=== PATIENT | male | born 1955 | race Caucasian/White ===

== ENCOUNTER 2017-07-27 07:09 | Outpatient (CLI) | payer OTHER ==
[~2017-07-27 07:09] MED LIST: CELEXA20 MG; HYZAAR 100-251 UDTAB; INTESTINEX1 CA1 PO; KLONOPIN0.5 MG/TAB; NEURONTIN800 MG; PROTONIX40 MG; PROTONIX40 MG PO; SKELAXIN800 MG; TOPROL XL25 MG
== END 2017-07-27 07:20 | disposition home or self-care (01) ==
LOC: SONOGRAMA 07:09 → MAMO-SONO 08:15
DX: K76.0 Fatty (change of) liver, not elsewhere classified (principal)

== ENCOUNTER 2017-09-28 07:33 | Outpatient (CLI) | payer OTHER | END 2017-09-28 15:33 | disposition home or self-care (01) | LOC: MRI 07:33 | DX: M17.12 Unilateral primary osteoarthritis, left knee (principal) | CPT/HCPCS: 73721 ==

== ENCOUNTER 2018-02-24 09:44 | Outpatient (CLI) | payer OTHER | END 2018-02-24 09:48 | disposition home or self-care (01) | LOC: LAB 09:44 | DX: I10 Essential (primary) hypertension (principal); E11.9 Type 2 diabetes mellitus without complications; E03.8 Other specified hypothyroidism; E78.2 Mixed hyperlipidemia; M81.0 Age-related osteoporosis without current pathological fracture; N40.0 Benign prostatic hyperplasia without lower urinary tract symptoms; K72.00 Acute and subacute hepatic failure without coma ==

== ENCOUNTER 2018-06-29 09:18 | Outpatient (CLI) | payer OTHER | END 2018-06-29 09:31 | disposition home or self-care (01) | LOC: TOM 09:18 | DX: K44.9 Diaphragmatic hernia without obstruction or gangrene (principal); J44.9 Chronic obstructive pulmonary disease, unspecified; J43.8 Other emphysema; R07.89 Other chest pain ==

== ENCOUNTER 2018-10-25 08:26 | Outpatient (CLI) | payer OTHER | END 2018-10-25 11:29 | disposition home or self-care (01) | LOC: LAB 08:26 | DX: E78.2 Mixed hyperlipidemia (principal); I10 Essential (primary) hypertension; E11.9 Type 2 diabetes mellitus without complications; E03.8 Other specified hypothyroidism ==

== ENCOUNTER 2018-10-26 08:03 | Outpatient (CLI) | payer OTHER | END 2018-10-26 08:06 | disposition home or self-care (01) | LOC: TOM 08:03 | DX: M17.12 Unilateral primary osteoarthritis, left knee (principal); R10.9 Unspecified abdominal pain ==

== ENCOUNTER 2018-11-20 07:15 | Outpatient (CLI) | payer OTHER | END 2018-11-20 07:34 | disposition home or self-care (01) | LOC: SONOGRAMA 07:15 | DX: R10.9 Unspecified abdominal pain (principal) ==

== ENCOUNTER → 2019-03-11 | Outpatient (CLI) | payer OTHER | END | disposition home or self-care (01) | LOC: MRI 12:58 | DX: M54.12 Radiculopathy, cervical region (principal); M65.811 Other synovitis and tenosynovitis, right shoulder | CPT/HCPCS: 72142; 73221 ==

== ENCOUNTER 2019-04-04 07:00 | Outpatient (CLI) | payer OTHER | END 2019-04-04 07:09 | disposition home or self-care (01) | LOC: LAB 07:00 | DX: K70.30 Alcoholic cirrhosis of liver without ascites (principal) ==

== ENCOUNTER 2019-04-12 17:32 | Emergency (ER) | payer OTHER ==
[~2019-04-12] VITALS: Ht 195.6 cm; Wt 99.8 kg
== END 2019-04-12 22:31 | disposition home or self-care (01) ==
LOC: ER 17:32
DX: R41.0 Disorientation, unspecified (principal); F10.10 Alcohol abuse, uncomplicated

== ENCOUNTER → 2019-05-02 09:13 | Outpatient (CLI) | payer OTHER | END | disposition home or self-care (01) | LOC: LAB 09:13 | DX: K70.30 Alcoholic cirrhosis of liver without ascites (principal); D64.89 Other specified anemias ==

== ENCOUNTER 2019-05-24 16:30 | Inpatient (IN) | payer OTHER ==
[~2019-05-24] VITALS: Ht 193 cm; Wt 95.3 kg
--- NOTE | 2019-05-24 17:36 | NUR ---
PTE EN AMBULANCIA EN COMPANIA DE PARAMEDICOS. PTE ALERTA Y ORIENTADO X3, PARAMEDICOS REFIEREN QUE EL PTE SUFRIO UN SYNCOPE A LAS 3:15PM. REFIEREN QUE EL PTE NO SUFRIO CAIDA POR QUE LO AGUANTARON. PTE AL MOMENTO ALERTA Y ORIENTADO X3 SIN DOLOR Y NO PRESENTA DEFICIS.PTE SON S/V ESTABLES. PTE REFIERE QUE ANTES DEL SYNCOPE BEBIO BEBIDAS ALCOHOLICAS CON AARON ALMUERZO. SE LE REALIZA EKG Y SE LE PRESENTA A . SE COLOCA PTE EN K8 CON MOITOR CARDIACO Y OXIMETRIA.
--- NOTE | 2019-05-24 18:22 | NUR ---
PACIENTE ALERTA Y ORIENTADO POR MARIZOL ESFERAS. SE ORIENTA A PACIENTE SOBRE PROCEDIMEINTO Y TX, REFIERE ENTENDER. SE EXTRAE MUESTRAS DE LABORATORIO CON MEDIDAS ASEPTICAS Y SE ADMINISTRA MEDICAMENTOS EVANGELISTA ORDEN MEDICA.
--- NOTE | 2019-05-24 19:13 | NUR ---
SE RECIBE PACIENTE EN SILLON DE CORA PROCEDENTE DE AREA DE OBSERVACIOEZEEN. ES COLOCADO EN CAMA NUN-3 Y CONECTADO A MONITOR CARDIACO Y OXIMETRIA. ES ORIENTADO SOBRE PROCEDIMIENTOS A LLEVARSE A CABO,LO CUAL REFIERE COMPRENDER ES MANTENIDO CON CABESERA A 45 GRADOS,BARANDAS ELEVADAS,TIMBRE ACCESIBLE Y EN OBSERVACION MICAH POR CAMBIOS EN CONDICION.
--- NOTE | 2019-05-24 23:17 | NUR ---
SE RECIBE PACIENTE EN LA UNIDA DE CRITICO ALERTA Y ORIENTADO X3 EN CAMA CON BARANDAS ELEVADAS Y CABEZER A 30 GRADOS, CONECTADO A MONITOR CARDIACO CON OXIMETRIA, AREA DE VENOPUNCION PATENTE Y KAYLIE DE EDEMA BAJANDO 0.9NSS 1000ML A 100ML/HR. PACIENTE ESTABLE SE MANTIENE BAJO OBSERVACION CONTINUA.
--- NOTE | 2019-05-25 08:47 | NUR ---
SE RECIBE PTE DEL TURNO ANTERIOR, ALERTA Y ORIENTADO X3 ESFERAS, EN CAMA NIVEL MAS BAJO, CORTEZ DE IDENTIFICACION Y BARANDAS SUPERIORES ELEVADAS POR PRECAUCION. SE OBSERVA CON BUEN PATRON RESPIRATORIO, AL MOMENTO SATURANDO 98%. PIEL TIBIA AL TACTO. H/L ANTECUBITAL EN BRAZO LT #18 CON FECHA DE 05/24/19 PATENTE Y KAYLIE DE EDEMA O ERITEMA. PTE PENDIENTE A CONSULTA CON DR FALCON. SE MANTIENE BAJO OBSERVACION, EN CAMA NIVEL MAS BAJO, CORTEZ DE IDENTIFICACION Y BARANDAS ELEVADAS POR PRECAUCION. CONECTADO A MONITOR CARDIACO Y OXIMETRIA DE PULSO.
== END 2019-05-30 09:14 | disposition home or self-care (01) | DRG 441 ==
LOC: ER 16:30 → SURH 05-25 11:15 → SEC-K 05-25 11:15 → SURH 05-25 14:38
PROVIDERS: ADMIT Internal Medicine Cardiovascular Disease
PROC: BW28ZZZ Computerized Tomography (CT Scan) of Head (ICD-10-PCS; principal; 2019-05-25)
PROC: B246ZZZ Ultrasonography of Right and Left Heart (ICD-10-PCS; 2019-05-25)
PROC: B345ZZZ Ultrasonography of Bilateral Common Carotid Arteries (ICD-10-PCS; 2019-05-25)
PROC: B348ZZZ Ultrasonography of Bilateral Internal Carotid Arteries (ICD-10-PCS; 2019-05-25)
PROC: B030YZZ Magnetic Resonance Imaging (MRI) of Brain using Other Contrast (ICD-10-PCS; 2019-05-25)
DX: K76.1 Chronic passive congestion of liver (principal); I50.21 Acute systolic (congestive) heart failure; I85.00 Esophageal varices without bleeding; F10.14 Alcohol abuse with alcohol-induced mood disorder; K70.10 Alcoholic hepatitis without ascites; R55 Syncope and collapse; I08.0 Rheumatic disorders of both mitral and aortic valves; I65.21 Occlusion and stenosis of right carotid artery; I11.0 Hypertensive heart disease with heart failure; H81.12 Benign paroxysmal vertigo, left ear; I87.8 Other specified disorders of veins
CPT/HCPCS: 70552

== ENCOUNTER → 2019-06-05 13:42 | Outpatient (CLI) | payer OTHER | END | disposition home or self-care (01) | LOC: LAB 13:42 | DX: Z13.89 Encounter for screening for other disorder (principal) ==

== ENCOUNTER 2019-07-09 06:00 | Day surgery (SDC) | payer OTHER ==
[2019-07-09] MEDS ORDERED: PERCOCET 5-3251 EACH PO (11:15)
[2019-07-09] MEDS ORDERED: CEFADROXIL500 MG PO (11:15)
== END 2019-07-09 13:20 | disposition home or self-care (01) ==
LOC: CIR.AMB 06:00 → ADM 13:30 → CIR.AMB 15:00
DX: S42.021D Displaced fracture of shaft of right clavicle, subsequent encounter for fracture with routine healing (principal); T84.028A Dislocation of other internal joint prosthesis, initial encounter; T84.89XA Other specified complication of internal orthopedic prosthetic devices, implants and grafts, initial encounter

== ENCOUNTER 2019-07-24 09:33 | Emergency (ER) | payer OTHER ==
[~2019-07-24] VITALS: Ht 195.6 cm; Wt 102.1 kg
[~2019-07-24 09:33] MED LIST changes: +CEFADROXIL500 MG PO; +PERCOCET 5-3251 EACH PO
[2019-07-24] MEDS ORDERED: COZAAR50 MG (09:39)
[2019-07-24] MEDS ORDERED: TOPROL XL25 M1 (09:39)
[2019-07-24] MEDS ORDERED: CLONAZEPAM0.5 MG (09:44)
== END 2019-07-24 11:50 | disposition home or self-care (01) ==
LOC: ER 09:33
DX: I95.89 Other hypotension (principal)

== ENCOUNTER 2019-09-02 10:14 | Outpatient (CLI) | payer OTHER ==
[~2019-09-02 10:14] MED LIST changes: +CLONAZEPAM0.5 MG; +COZAAR50 MG; +TOPROL XL25 M1
== END 2019-09-02 15:00 | disposition home or self-care (01) ==
LOC: LAB 10:14
DX: R31.29 Other microscopic hematuria (principal)

== ENCOUNTER 2019-09-17 09:25 | Outpatient (CLI) | payer OTHER | END 2019-09-17 09:49 | disposition home or self-care (01) | LOC: LAB 09:25 | DX: R31.9 Hematuria, unspecified (principal) ==

== ENCOUNTER 2019-11-16 12:36 | Outpatient (CLI) | payer OTHER | END 2019-11-16 12:55 | disposition home or self-care (01) | LOC: LAB 12:36 | DX: J11.1 Influenza due to unidentified influenza virus with other respiratory manifestations (principal); I10 Essential (primary) hypertension; E11.9 Type 2 diabetes mellitus without complications; E03.8 Other specified hypothyroidism; E78.2 Mixed hyperlipidemia; K70.30 Alcoholic cirrhosis of liver without ascites; D64.89 Other specified anemias ==

== ENCOUNTER 2019-12-19 14:12 | Emergency (ER) | payer OTHER ==
[~2019-12-19] VITALS: Ht 195.6 cm; Wt 104.3 kg
[2019-12-27] MEDS ORDERED: GABAPENTIN PO (10:55)
[2019-12-27] MEDS ORDERED: COZAAR25 MG PO (10:56)
[2019-12-27] MEDS ORDERED: CLONAZEP PO (10:56)
== END 2019-12-19 20:40 | disposition home or self-care (01) ==
LOC: ER 14:12
DX: S00.03XA Contusion of scalp, initial encounter (principal); W18.39XA Other fall on same level, initial encounter; Y93.89 Activity, other specified; Y92.098 Other place in other non-institutional residence as the place of occurrence of the external cause; Y99.8 Other external cause status; R55 Syncope and collapse

== ENCOUNTER 2020-01-02 06:00 | Day surgery (SDC) | payer OTHER ==
[~2020-01-02 06:00] MED LIST changes: +CLONAZEP PO; +COZAAR25 MG PO; +GABAPENTIN PO
== END 2020-01-02 14:20 | disposition home or self-care (01) ==
LOC: CIR.AMB 06:00 → ADM 09:00 → CIR.AMB 09:00
PROVIDERS: ATTEND Orthopaedic Surgery
DX: M75.121 Complete rotator cuff tear or rupture of right shoulder, not specified as traumatic (principal); S42.031K Displaced fracture of lateral end of right clavicle, subsequent encounter for fracture with nonunion

== ENCOUNTER 2020-02-17 07:56 | Outpatient (CLI) | payer OTHER | END 2020-02-17 08:08 | disposition home or self-care (01) | LOC: LAB 07:56 | DX: F10.188 Alcohol abuse with other alcohol-induced disorder (principal) ==

== ENCOUNTER 2020-08-17 10:31 | Outpatient (CLI) | payer OTHER ==
[2020-08-25] MEDS ORDERED: GABAPE PO (09:46)
== END 2020-08-17 10:59 ==
LOC: RAD 10:31
PROVIDERS: ATTEND Orthopaedic Surgery
DX: R07.89 Other chest pain (principal); M25.561 Pain in right knee; M25.562 Pain in left knee

== ENCOUNTER 2020-09-08 08:27 | Inpatient (IN) | payer OTHER ==
[~2020-09-08] VITALS: Ht 195.6 cm; Wt 104.3 kg
[~2020-09-08 08:27] MED LIST changes: +GABAPE PO
[2020-09-08] MEDS ORDERED: ZOLOFT100 MG (16:23)
[2020-09-08] MEDS ORDERED: GRALISE600 MG PO (16:23)
[2020-09-08] MEDS ORDERED: ACAMPROSATE CA333 MG (16:23)
[2020-09-08] MEDS ORDERED: TRAZODONE HCL150 MG (16:24)
[2020-09-10] MEDS ORDERED: 8 HOUR PAIN RE650 M1 PO (11:34)
[2020-09-10] MEDS ORDERED: GABAPENTIN100 MG PO (11:34)
[2020-09-10] MEDS ORDERED: CHLORDIAZEPOXID25 MG PO (11:34)
[2020-09-10] MEDS ORDERED: ELIQUIS2.5 MG PO (11:34)
[2020-09-10] MEDS ORDERED: NORFLEX100MG PO (11:34)
== END 2020-09-10 20:04 | DRG 470 ==
LOC: CIR.AMB 08:27 → SURH 16:21 → O/R 16:21 → SURH 16:50
PROVIDERS: ADMIT Orthopaedic Surgery; ATTEND Orthopaedic Surgery
PROC: 0SRC0J9 Replacement of Right Knee Joint with Synthetic Substitute, Cemented, Open Approach (ICD-10-PCS; principal; 2020-09-08 10:30)
DX: M17.11 Unilateral primary osteoarthritis, right knee (principal); D62 Acute posthemorrhagic anemia; K70.9 Alcoholic liver disease, unspecified; F41.9 Anxiety disorder, unspecified; I10 Essential (primary) hypertension; Z20.822 Contact with and (suspected) exposure to COVID-19; D69.59 Other secondary thrombocytopenia; F10.10 Alcohol abuse, uncomplicated

== ENCOUNTER 2020-09-13 17:14 | Inpatient (IN) | payer OTHER ==
[~2020-09-13] VITALS: Ht 188 cm; Wt 102.1 kg
[~2020-09-13 17:14] MED LIST changes: +8 HOUR PAIN RE650 M1 PO; +ACAMPROSATE CA333 MG; +CHLORDIAZEPOXID25 MG PO; +ELIQUIS2.5 MG PO; +GABAPENTIN100 MG PO; +GRALISE600 MG PO; +NORFLEX100MG PO; +TRAZODONE HCL150 MG; +ZOLOFT100 MG
[2020-09-13] MEDS ORDERED: ZOLOF ×2 (17:25→17:28)
[2020-09-13] MEDS ORDERED: NEURONTIN ×2 (17:26→17:28)
--- NOTE | 2020-09-13 17:29 | NUR ---
PTE SE RECIBE POR SURGERY COMPLICATION EN LA RODILLA DERECHA Y ANEMIA REFIERE PARAMEDICO Y PTE.
--- NOTE | 2020-09-13 17:54 | NUR ---
SE EJECTUA ORDEN MEDICA EN AARON TOTALIDAD, PACIENTE CON ORDENES DE MUESTRAS DE YESY Y REALIZA ADMINISTRACION DE TERAPIA INTRAVENOSA. PACIENTE CON ORDEN DE REQUISAR 2 UNIDADES DE PRBC FRACCIONADAS POR ORDEN MEDICA DE DR. BALES. AL REQUISAR LAS MISMA SE REALIZO LLAMADA A PERSONAL DE [employer] PARA NOTIFICAR LA ORDEN MEDICA. SE LOGRA CONTACTO CON SRA. PELAEZ CUAL NOTIFICA QUE ENVIARA PERSONAL PARA RECOGER LA REQUISICION.
--- NOTE | 2020-09-13 20:48 | NUR ---
PACIENTE COPN NUEVA ORDEN DE TRANFUNDIR 2 UNIDADES COMPLETAS Y CANCELAR LA UNIDADES PEDIDAS PREVIAMENTE EN HOLD. AL MOMENTO SE REALIZA NUEVA REQUICISION PARA 2 UNIDADES DE YESY DE PRBC COMPLETAS Y SE LLAMA A [employer] PARA NOTIFICAR CAMBIO EN ORDE, AL MOMENTO SE LOGRA CONTACTO CON SR. CALABRESE CUAL ORDENA ENVIAR POR VIA FAX LA NUEVA ORDEN DE 2 UNIDADES DE YESY COMPLETAS.
--- NOTE | 2020-09-13 23:00 | NUR ---
SE RECIBE PACIENTE ALERTA Y ORIENTADO EN TIEMPO LUGAR Y PERSONA. EN CAMA #1 EN AREA DE CRITICO. CON CAMA EN POSICION SEMI CHAVEZ, BARANDAS ELEVADAS Y FRENOS AJUSTADOS POR SEGURIDAD. CONECTADO A MONITOR CARDIACO CON UN HR 79BPM, NIBP, Y SATURANDO 97% MEDIDO POR OXIMETRIA DE PULSO. ABDOMEN BLANDO AL PALPAR, CON PERISTALSIS PRESENTE. SONDA URINARIA PATENTE, COLECTANDO ORINA A GRAVEDAD, COLOR AMARILLA. EXTREMIDADES SUPERIORES E INFERIORES PRESENTES, CON IGUAL FUERZA Y/O MOVIMIENTO. PIEL TIBIA AL MOMENTO, Y KAYLIE DE DOLOR. SE ORIENTA SOBRE CUIDADO Y TRATAMIENTO DE ENFERMERIA, PTE VERBALIZA ENTENDER. SE MANTIENE EN OBSERVACION POR CAMBIOS EN AARON CONDICION. SE PROVEEN RONDAS PREVENTIVAS POR SEGURIDAD. PTE CON 2 VENOPUNCIONES PATENTES, KAYLIE DE ERITEMA Y EDEMA, RECIBIENDO AL MOMENTO 0.9 NSS 1000ML A 200ML/HR. PENDIENTE 2 UNIDADES DE PRBC PARA TRANSFUNDIR, REQUISADAS POR EL TURNO ANTERIOR.
[2020-09-14] MEDS ORDERED: MICRO-K 1010 MEQ (10:36)
[2020-09-14] MEDS ORDERED: VITAMIN K100 MCG (10:36)
== END 2020-09-18 16:55 | disposition home or self-care (01) | DRG 920 ==
LOC: ER 17:14 → SEC-K 09-14 06:10 → SURH 09-14 06:10
PROVIDERS: ADMIT Internal Medicine Cardiovascular Disease; ATTEND Internal Medicine Cardiovascular Disease
PROC: 30233N1 Transfusion of Nonautologous Red Blood Cells into Peripheral Vein, Percutaneous Approach (ICD-10-PCS; principal; 2020-09-14)
PROC: BW28ZZZ Computerized Tomography (CT Scan) of Head (ICD-10-PCS; 2020-09-15)
PROC: B54BZZZ Ultrasonography of Right Lower Extremity Veins (ICD-10-PCS; 2020-09-16)
PROC: 30233L1 Transfusion of Nonautologous Fresh Plasma into Peripheral Vein, Percutaneous Approach (ICD-10-PCS; 2020-09-16)
PROC: 30233K1 Transfusion of Nonautologous Frozen Plasma into Peripheral Vein, Percutaneous Approach (ICD-10-PCS; 2020-09-16)
DX: M96.840 Postprocedural hematoma of a musculoskeletal structure following a musculoskeletal system procedure (principal); D62 Acute posthemorrhagic anemia; K70.9 Alcoholic liver disease, unspecified; Y83.4 Other reconstructive surgery as the cause of abnormal reaction of the patient, or of later complication, without mention of misadventure at the time of the procedure; D69.59 Other secondary thrombocytopenia